=== PATIENT | male | born 1980 | race Caucasian/White ===

== ENCOUNTER 2018-02-24 15:25 | Emergency (ER) | payer MEDICAID, SELFPAY ==
[~2018-02-24] VITALS: Ht 175.3 cm; Wt 67.3 kg
[2018-02-24 15:28] VITALS: BP 114/67
[2018-02-24] MEDS ORDERED: FAMOTIDINE 20 MG TABLET PO ONE (16:00)
[2018-02-24] MEDS ORDERED: ONDANSETRON ODT 4 MG PO ONE (16:00)
[2018-02-24 16:38] LABS: ALBUMIN 3.7 g/dL (3.4-5.0); ANION GAP 9 mmol/L (5-15); CALCIUM 8.6 mg/dL (8.5-10.1); CHLORIDE 109 mmol/L (98-107)
[2018-02-24 16:40] LABS: BASOPHILS # (AUTO) 0.08 x10^3/uL (0-0.1); BASOPHILS % (AUTO) 1 % (0-1); EOSINOPHILS % (AUTO) 2 % (1-7); LYMPHOCYTES # (AUTO) 2.43 x10^3/uL (1-3.4); LYMPHOCYTES % (AUTO) 26 % (22-44); MD NO; MEAN CORPUSCULAR HEMOGLOBIN 29.1 pg (27.5-34.5); MEAN CORPUSCULAR HGB CONC 33.1 g/dL (33.2-36.2); MEAN CORPUSCULAR VOLUME 87.9 fL (81-97); MEAN PLATELET VOLUME 6.9 fL (7.4-10.4); MONOCYTES % (AUTO) 8 % (2-9); NEUTROPHILS # (AUTO) 6.04 x10^3/uL (1.8-6.8); NEUTROPHILS % (AUTO) 63 % (42-75); PLATELET COUNT 305 x10^3/uL (130-400); RED CELL DISTRIBUTION WIDTH 13.1 % (9.4-14.8)
[2018-02-24] MEDS ORDERED: ONDANSETRON ODT 4 MG ONE (16:40)
[2018-02-24] MEDS ORDERED: FAMOTIDINE 20 MG TABLET ONE (16:40)
[2018-02-24 16:41] LABS: ALANINE AMINOTRANSFERASE 33 U/L (12-78); ALKALINE PHOSPHATASE 67 U/L (45-117); BILIRUBIN,TOTAL 0.7 mg/dL (0.2-1.0); TOTAL PROTEIN 7.3 g/dL (6.4-8.2)
[2018-02-24 17:12] LABS: CULTURE INDICATED? YES; MICROSCOPIC INDICATED
== END 2018-02-24 18:31 | disposition home or self-care (01) ==
LOC: ED 18:09
DX: R10.31 Right lower quadrant pain (principal); R11.0 Nausea
CPT/HCPCS: 36415; 74021; 80053; 81001; 83690; 85025; 87086; 99285; Q0162

== ENCOUNTER 2018-12-04 11:32 | Emergency (ER) | payer MEDICAID, OTHER ==
[~2018-12-04] VITALS: Ht 175.3 cm; Wt 70.8 kg
[2018-12-04 11:42] VITALS: BP 105/68
[2018-12-04 12:13] LABS: BASOPHILS # (AUTO) 0.08 x10^3/uL (0-0.1); BASOPHILS % (AUTO) 1 % (0-1); EOSINOPHILS # (AUTO) 0.15 x10^3/uL (0-0.4); EOSINOPHILS % (AUTO) 2 % (1-7); LYMPHOCYTES # (AUTO) 2.61 x10^3/uL (1-3.4); LYMPHOCYTES % (AUTO) 27 % (22-44); MD NO; MEAN CORPUSCULAR HEMOGLOBIN 29.9 pg (27.5-34.5); MEAN CORPUSCULAR HGB CONC 32.9 g/dL (33.2-36.2); MEAN CORPUSCULAR VOLUME 90.7 fL (81-97); MEAN PLATELET VOLUME 6.9 fL (7.4-10.4); MONOCYTES % (AUTO) 6 % (2-9); NEUTROPHILS # (AUTO) 6.18 x10^3/uL (1.8-6.8); NEUTROPHILS % (AUTO) 64 % (42-75); PLATELET COUNT 346 x10^3/uL (130-400); RED BLOOD COUNT 5.05 x10^6/uL (4.38-5.82); RED CELL DISTRIBUTION WIDTH 13.6 % (9.4-14.8)
[2018-12-04 12:23] LABS: ALBUMIN 3.9 g/dL (3.4-5.0); ANION GAP 6 mmol/L (5-15); CALCIUM 8.8 mg/dL (8.5-10.1); CHLORIDE 111 mmol/L (98-107)
[2018-12-04 12:27] LABS: ALANINE AMINOTRANSFERASE 18 U/L (12-78); ALKALINE PHOSPHATASE 71 U/L (45-117); BILIRUBIN,TOTAL 0.2 mg/dL (0.2-1.0); CREATININE 1.04 mg/dL (0.7-1.3); TOTAL PROTEIN 7.7 g/dL (6.4-8.2)
[2018-12-04 12:39] LABS: MICROSCOPIC AUTO
[2018-12-04 12:43] LABS: CULTURE INDICATED? NO
--- NOTE | 2018-12-04 15:22 | NUR ---
PT AMBULATED INDEPENDENTLY TO ED ROOM 31 FROM LOBBY IN [facility], MD [place] HAS BEEN AT BEDSIDE TO ASSESS PT & DISCUSS DISPO/DC PLAN. PT REPORTS NO QUESTIONS OR NEEDS AT THIS TIME, AWAITING DC PAPERWORK.
== END 2018-12-04 15:39 | disposition home or self-care (01) ==
LOC: ED 15:33
DX: K40.90 Unilateral inguinal hernia, without obstruction or gangrene, not specified as recurrent (principal); R11.2 Nausea with vomiting, unspecified
CPT/HCPCS: 36415; 74021; 80053; 81001; 83690; 85025; 99284

== ENCOUNTER 2019-12-11 19:19 | Emergency (ER) | payer MEDICAID ==
[~2019-12-11] VITALS: Ht 175.3 cm; Wt 69.7 kg
--- NOTE | 2019-12-11 20:09 | NUR ---
PT C/O RECTAL PAIN AFTER HEMMORROIDECTOMY LAST SUNDAY. PT HAS BEEN SEEN AT [facility] FOR SAME, VERIFIED HEMMOROID HAS RETURNED. PT HAD SHEEHAN PLACED LAST SUNDAY FOR RETENTION, FOR THREE DAYS, THEN REMOVED. PT HAS BEEN URINATING WITHOUT PROBLEMS. CONNECTED TO MONITORING. CALL LIGHT IN REACH. AWAITING ORDERS AT THIS TIME.
[2019-12-11] MEDS ORDERED: ONDANSETRON 2MG/ML, 2ML ONE (20:17)
[2019-12-11] MEDS ORDERED: MORPHINE SULFATE 4 MG/ML, 1ML ONE (20:18)
[2019-12-11 20:28] VITALS: BP 112/68
--- NOTE | 2019-12-11 20:29 | NUR ---
PIV PLACED, LABS DRAWN, MEDS ADMIN PER AUG. PT PLACED ON OXYGEN FOR SAFETY.
[2019-12-11] MEDS ORDERED: ONDANSETRON 2MG/ML, 2ML IVPush ONE (20:30)
[2019-12-11] MEDS ORDERED: SODIUM CHLORIDE FLUSH 10ML SYR IVF ONE (20:30)
[2019-12-11] MEDS ORDERED: MORPHINE SULFATE 4 MG/ML, 1ML IVPush PRN (20:30)
--- NOTE | 2019-12-11 20:41 | NUR ---
BLADDER SCAN SHOWED 129ML. PT UNABLE TO PROVIDE URINE SAMPLE AT THIS TIME. PT URINATED UPON ARRIVAL TO ED. PROVIDER NOTIFIED.
[2019-12-11 20:47] LABS: BASOPHILS % (AUTO) 1 % (0-1); EOSINOPHILS # (AUTO) 0.22 x10^3/uL (0-0.4); EOSINOPHILS % (AUTO) 2 % (1-7); LYMPHOCYTES # (AUTO) 2.77 x10^3/uL (1-3.4); LYMPHOCYTES % (AUTO) 31 % (22-44); MD NO; MEAN CORPUSCULAR HEMOGLOBIN 30.2 pg (27.5-34.5); MEAN CORPUSCULAR HGB CONC 33.9 g/dL (33.2-36.2); MONOCYTES # (AUTO) 0.63 x10^3/uL (0.2-0.8); MONOCYTES % (AUTO) 7 % (2-9); NEUTROPHILS # (AUTO) 5.21 x10^3/uL (1.8-6.8); NEUTROPHILS % (AUTO) 58 % (42-75); PLATELET COUNT 307 x10^3/uL (130-400); RED BLOOD COUNT 4.82 x10^6/uL (4.38-5.82); RED CELL DISTRIBUTION WIDTH 13.1 % (9.4-14.8)
[2019-12-11 20:54] LABS: ALANINE AMINOTRANSFERASE 18 U/L (12-78); ALBUMIN 3.5 g/dL (3.4-5.0); ANION GAP 6 mmol/L (5-15); CHLORIDE 110 mmol/L (98-107); CREATININE 1.34 mg/dL (0.7-1.3)
[2019-12-11 20:57] LABS: ALKALINE PHOSPHATASE 61 U/L (45-117); BILIRUBIN,TOTAL 0.2 mg/dL (0.2-1.0)
--- NOTE | 2019-12-11 21:01 | NUR ---
PT PROVIDED URINE SAMPLE. UA COLLECTED AND SENT TO LAB.
--- NOTE | 2019-12-11 21:03 | NUR ---
PT GOING TO CT
[2019-12-11 21:08] LABS: MICROSCOPIC NOT IND
--- NOTE | 2019-12-11 21:12 | NUR ---
PT BACK FROM CT. PT STATES PAIN IS BETTER AFTER PAIN MEDS.
--- NOTE | 2019-12-11 21:23 | NUR ---
ALL RESULTS ARE BACK AT THIS TIME. CHART UP FOR RECHECK.
[2019-12-11] MEDS ORDERED: OMNIPAQUE 350 MG/ML, 100ML BOTTLE ONE (23:28)
== END 2019-12-11 21:54 | disposition home or self-care (01) ==
LOC: ED 21:30
DX: K64.4 Residual hemorrhoidal skin tags (principal); N28.9 Disorder of kidney and ureter, unspecified
CPT/HCPCS: 36415; 74177; 80053; 81003; 85025; 96374; 96375; 99285; J2270; J2405; Q9967

== ENCOUNTER 2020-03-09 11:59 | Emergency (ER) | payer MEDICAID ==
[~2020-03-09] VITALS: Ht 175.3 cm; Wt 70.4 kg
--- NOTE | 2020-03-09 12:54 | NUR ---
PT CAME IN CO OF RUQ PAIN X 1 YEAR. SAYS HE WENT TO [place] A MONTH AGO AND THE CT SCAN WAS NEGATIVE. PT ALSO REPORTS THAT HIS APPENDIX WAS REMOVED LAST YEAR. PT HAS PROVIDED A UA SAMPLE BUT DENIES URINARY SYMPTOMS. PT IS RESTING IN [facility]. MD IS BEDSIDE FOR ASSESSMENT. BLANKET PROVIDED.
[2020-03-09] MEDS ORDERED: ONDANSETRON 2MG/ML, 2ML IVPush ONE (13:30)
[2020-03-09] MEDS ORDERED: ONDANSETRON 2MG/ML, 2ML ONE (13:39)
[2020-03-09] MEDS ORDERED: MORPHINE SULFATE 4 MG/ML, 1ML ONE (13:39)
[2020-03-09 13:43] LABS: MICROSCOPIC NOT IND
[2020-03-09 13:44] LABS: BASOPHILS # (AUTO) 0.12 x10^3/uL (0-0.1); BASOPHILS % (AUTO) 1 % (0-1); EOSINOPHILS # (AUTO) 0.12 x10^3/uL (0-0.4); EOSINOPHILS % (AUTO) 1 % (1-7); LYMPHOCYTES # (AUTO) 2.64 x10^3/uL (1-3.4); LYMPHOCYTES % (AUTO) 30 % (22-44); MD NO; MEAN CORPUSCULAR HGB CONC 33.7 g/dL (33.2-36.2); MEAN PLATELET VOLUME 6.7 fL (7.4-10.4); MONOCYTES # (AUTO) 0.54 x10^3/uL (0.2-0.8); MONOCYTES % (AUTO) 6 % (2-9); NEUTROPHILS % (AUTO) 61 % (42-75); PLATELET COUNT 313 x10^3/uL (130-400); RED BLOOD COUNT 5.11 x10^6/uL (4.38-5.82); RED CELL DISTRIBUTION WIDTH 13.3 % (9.4-14.8)
[2020-03-09] MEDS: MORPHINE SULFATE 4 MG/ML, 1ML IVPush PRN ×2 (13:44→14:06)
[2020-03-09 13:51] LABS: ALANINE AMINOTRANSFERASE 13 U/L (12-78); ALBUMIN 3.6 g/dL (3.4-5.0); ANION GAP 4 mmol/L (5-15); CALCIUM 8.4 mg/dL (8.5-10.1); CHLORIDE 113 mmol/L (98-107)
[2020-03-09 13:53] LABS: ALKALINE PHOSPHATASE 57 U/L (45-117); BILIRUBIN,TOTAL 0.4 mg/dL (0.2-1.0); TOTAL PROTEIN 7.3 g/dL (6.4-8.2)
--- NOTE | 2020-03-09 14:10 | NUR ---
PER PT REQUEST GIVEN ADDITIONAL DOSE OF MORHPHINE IV FOR 12/02 PAIN
[2020-03-09 16:14] VITALS: BP 116/79
== END 2020-03-09 17:20 | disposition home or self-care (01) ==
LOC: ED 13:22
DX: K40.90 Unilateral inguinal hernia, without obstruction or gangrene, not specified as recurrent (principal); Q53.9 Undescended testicle, unspecified; G89.29 Other chronic pain; Z90.89 Acquired absence of other organs
CPT/HCPCS: 36415; 76870; 80053; 81003; 83690; 85025; 96374; 96375; 99284; J2270; J2405

== ENCOUNTER 2020-10-26 05:25 | Emergency (ER) | payer MEDICAID ==
[~2020-10-26] VITALS: Ht 175.3 cm; Wt 72.3 kg
[2020-10-26 05:33] VITALS: BP 103/65
--- NOTE | 2020-10-26 06:08 | NUR ---
PT STATES HAS HAD NV 1 WEEK AND PAIN IN GROIN X2 WEEKS. HAD L TESTICAL REIMOVED AND HERINIA SURGERY ON 08/12/20.
[2020-10-26] MEDS ORDERED: PANTOPRAZOLE 20MG TABLET ONE (06:19)
[2020-10-26] MEDS ORDERED: ONDANSETRON ODT 4 MG ONE (06:20)
[2020-10-26] MEDS ORDERED: ONDANSETRON ODT 4 MG PO ONE (06:30)
[2020-10-26] MEDS ORDERED: PANTOPRAZOLE 20MG TABLET PO ONE (06:30)
--- NOTE | 2020-10-26 06:39 | NUR ---
Patient given discharge instructions and they have confirmed that they understand the instructions. Patient ambulatory with steady gait. Pt had no questions at time of discharge.
== END 2020-10-26 06:43 | disposition home or self-care (01) ==
LOC: ED 06:30
DX: R11.2 Nausea with vomiting, unspecified (principal); K21.9 Gastro-esophageal reflux disease without esophagitis
CPT/HCPCS: 99283; Q0162

== ENCOUNTER 2020-11-03 18:52 | Emergency (ER) | payer MEDICAID ==
[~2020-11-03] VITALS: Ht 175.3 cm; Wt 69.4 kg
[2020-11-03] MEDS ORDERED: LIDOCAINE-MPF 1%, 5ML ONE (19:53)
[2020-11-03] MEDS ORDERED: LIDOCAINE 1%, 10ML INFIL ONE (20:00)
[2020-11-03 20:50] VITALS: BP 97/62
== END 2020-11-03 20:52 | disposition home or self-care (01) ==
LOC: ED 20:44
DX: L02.11 Cutaneous abscess of neck (principal); Z90.89 Acquired absence of other organs
CPT/HCPCS: 10060; 99282